=== PATIENT | male | born 1950 | race Caucasian/White ===

== ENCOUNTER 2018-12-14 11:46 | Inpatient (IN) | payer OTHER, BC ==
[~2018-12-14] VITALS: Ht 175.3 cm; Wt 125.9 kg
[2018-12-14 12:03] VITALS: Ht 175.3 cm; Wt 125.9 kg
[2018-12-14 12:22] LABS: BASOPHIL % 0.7 % (0-2); PLATELET COUNT 140 x10^3mcL (130-400)
[2018-12-14 12:40] LABS: CALCIUM 8.7 mg/dL (8.5-10.1); CREATININE SERUM 1.5 mg/dL (0.7-1.3); POTASSIUM SERUM 3.7 mmol/L (3.5-5.1)
[2018-12-14 12:44] LABS: TOTAL PROTEIN, SERUM 6.9 g/dL (6.4-8.2)
[2018-12-14 12:46] LABS: ALBUMIN 2.3 g/dL (3.4-5.0)
[2018-12-14 13:07] LABS: RED CELL DISTRIBUTION WIDTH 16.3 % (11.5-14.5)
[2018-12-14 15:29] LABS: APPEARANCE FLUID HAZY; COLOR FLUID YELLOW; LYMPHOCYTE FLUID 41 %; MONOCYTE FLUID 48 %; RBC FLUID 363 /cumm; SOURCE FLUID PARACENTESIS; WBC FLUID 67 /cumm
[2018-12-14] MEDS ORDERED: CLONAZEPAM0.5 MG PO (16:32)
[2018-12-14] MEDS ORDERED: GOOD SENSE ASPI81 M3 PO (16:32)
[2018-12-14 16:33] LABS: CHOLESTEROL/HDL RATIO 2.9; MAGNESIUM 1.7 mg/dL (1.8-2.4); PHOSPHOROUS 3.4 mg/dL (2.5-4.9)
[2018-12-14] MEDS ORDERED: XIFAXAN550 M1 PO (16:33)
[2018-12-14] MEDS ORDERED: LISINOPRIL2.5 MG PO (16:33)
[2018-12-14] MEDS ORDERED: LACTULOSE10 GM/152 (16:34)
[2018-12-14] MEDS ORDERED: CARVEDILOL3.125 M1 PO (16:34)
[2018-12-14] MEDS ORDERED: GLIMEPIRIDE4 M1 PO (16:34)
[2018-12-14] MEDS ORDERED: LASIX40 MG PO (16:34)
[2018-12-14] MEDS ORDERED: D3-50001 TAB PO (16:37)
[2018-12-14] MEDS ORDERED: B-1100 MG PO (16:37)
[2018-12-14 17:06] VITALS: BP 106/63
[2018-12-14 21:20] VITALS: BP 103/43
[2018-12-15 05:58] VITALS: BP 104/51
[2018-12-15 06:51] LABS: BASOPHIL % 0.8 % (0-2)
[2018-12-15 07:03] LABS: CALCIUM 8.5 mg/dL (8.5-10.1); CARBON DIOXIDE 21.9 mmol/L (21-32); CREATININE SERUM 1.5 mg/dL (0.7-1.3); POTASSIUM SERUM 3.8 mmol/L (3.5-5.1)
[2018-12-15 08:09] LABS: PLATELET COUNT 124 x10^3mcL (130-400); RED CELL DISTRIBUTION WIDTH 16.8 % (11.5-14.5)
[2018-12-15 09:40] VITALS: BP 118/72
[2018-12-15 17:25] LABS: UA SPECIFIC GRAVITY 1.025 (1.005-1.035); microscopic required? YES; urine erythrocyte NEGATIVE (NEGATIVE)
[2018-12-15 17:36] LABS: AMPHETAMINE QUAL UR NONE DETECTED (See below)
[2018-12-15 17:45] VITALS: BP 114/59
[2018-12-15 21:23] VITALS: BP 131/70
[2018-12-16 05:15] VITALS: BP 111/65
[2018-12-16 06:59] LABS: CALCIUM 8.7 mg/dL (8.5-10.1); CREATININE SERUM 1.5 mg/dL (0.7-1.3); POTASSIUM SERUM 4.2 mmol/L (3.5-5.1)
[2018-12-16 07:31] LABS: BASOPHIL % 0.5 % (0-2); PLATELET COUNT 130 x10^3mcL (130-400); RED CELL DISTRIBUTION WIDTH 16.7 % (11.5-14.5)
[2018-12-16 09:36] VITALS: BP 119/76
[2018-12-16 15:51] VITALS: BP 119/76
== END 2018-12-16 16:59 | DRG 432 ==
LOC: ED 11:46 → MU 16:14
PROVIDERS: Emergency Medicine; ADMIT Internal Medicine
PROC: 0W9G3ZZ Drainage of Peritoneal Cavity, Percutaneous Approach (ICD-10-PCS; principal; 2018-12-14)
DX: K70.31 Alcoholic cirrhosis of liver with ascites (principal); E43 Unspecified severe protein-calorie malnutrition; N17.0 Acute kidney failure with tubular necrosis; L03.311 Cellulitis of abdominal wall; Z68.41 Body mass index [BMI] 40.0-44.9, adult; E11.9 Type 2 diabetes mellitus without complications; E83.42 Hypomagnesemia; K42.9 Umbilical hernia without obstruction or gangrene; F10.10 Alcohol abuse, uncomplicated; Y90.0 Blood alcohol level of less than 20 mg/100 ml; E66.01 Morbid (severe) obesity due to excess calories; Z79.84 Long term (current) use of oral hypoglycemic drugs
CPT/HCPCS: 49083; 82962; 83880; 97116-GP; 97530-GP; C1729; G0378; J2001; J2405; J2543; J3010; J7030; J7040; Q0092

== ENCOUNTER → 2018-12-29 | Day surgery (SDC) | payer OTHER, BC ==
[~2018-12-29] VITALS: Ht 175.3 cm; Wt 133.8 kg
[~2018-12-29] MED LIST: B-1100 MG PO; CARVEDILOL3.125 M1 PO; CLONAZEPAM0.5 MG PO; D3-50001 TAB PO; GLIMEPIRIDE4 M1 PO; GOOD SENSE ASPI81 M3 PO; LACTULOSE10 GM/152; LASIX40 MG PO; LISINOPRIL2.5 MG PO; XIFAXAN550 M1 PO
--- NOTE | 2018-12-29 08:00 | NUR ---
RECEIVED PATIENT VIA W/C FROM ADM. FOR A PARACENTESIS. ALERT AND ORIENTED. RESP. REG. AND EVEN WITH OUT DISTRESS NOTED. NO SOB NOTED. ABD. DISTENDED AND TAUT. DR. Gabriel HUNTLEY IN TO SEE PATIENT. NEW ORDERES RECEIVED. NO C/O OR DSITRESS NOTED.
[2018-12-29 08:39] VITALS: BP 145/89
--- NOTE | 2018-12-29 10:40 | NUR ---
RADIOLOGIST AND RADIOLOGY NURSE AT THE BEDSIDE TO START THE PROCEDURE. DR. Gabriel HUNTLEY AT THE BEDSIDE. PATIENT IS ALERT AND ORIENTED. RESP. REG. AND EVEN WITH WITH OUT DISTRESS NOTED. NO SOB NOTED. PATIENT AMBULATED TO THE BATHROOM AT 1015 WITH STAND-BY ASSIT, NORMA. WELL. PATIENT STATED HE VOIDED WITH OUT C/O OF DYSPHAGIA NOTED. PROCEDURE STARTED AT THIS TIME. NO C/O OR DISTRESS NOTED.
--- NOTE | 2018-12-29 10:46 | NUR ---
SEE RADIOLOGY NURSING NOTES FOR INFORMATION REGARDING PARACENTESIS AT THE BEDSIDE. ULTASOUND TECHS AT THE BEDSIDE A/O FOR PARACENTESIS.
--- NOTE | 2018-12-29 11:22 | NUR ---
PARACENTSIS AT THE BEDSIDE IN PROGRESS. RADIOLOY RN AND RAD. TECHS AT THE BEDSIDE. PATIENT IS CONVERSING WITH THE NURSE AND THE TECHS. VERY PLEASANT. NO C/O OR DISTRESS NOTED. RESP. REG. AND EVEN WITH OUT DISTRESS NOTED. NO SOB NOTED.
[2018-12-29 11:40] VITALS: BP 113/64
--- NOTE | 2018-12-29 11:40 | NUR ---
PARACENTESIS COMPLETE AT THIS TIME. PATIENT TOLERATED PROCEDURE WELL. PATIENT STATES HE FEELS ALOT BETTER. RESP. REG. AND EVEN WITH OUT DISTRESS NOTED. NO SOB NOTED. DENIES CHEST PAIN AT THIS TIME. PARACENTSIS YEILDED 9 LITERS OF CLOUDY YELLOW. NO C/O OR DISTRESS NOTED.
[2018-12-29 12:00] VITALS: BP 116/64
--- NOTE | 2018-12-29 12:00 | NUR ---
AWAKE AND ALERT. PATIENT IS SITTING UP IN HIS GUERNY EATING LUNCH. RESP. REG. AND EVEN WITH OUT DISTRESS NOTED. NO SOB NOTED. DENIES CHEST PAIN AT THIS TIME. NO C/O OR DISTRESS NOTED.
[2018-12-29 12:25] VITALS: BP 110/68
--- NOTE | 2018-12-29 12:35 | NUR ---
PATIENT FINISHED HIS LUNCH, TOLERATED IT WELL. NO C/O DYSPHAGIA NOTED. RESP. REG. AND EVEN WIHT OUT DISTRESS NOTED. AMBULATED TO THE BATHROOOM WITH STAND-BY ASSSITNORMA. WELL. 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 PATIENT WAS ABLE TO DRESS HIMSELF WITH OUT C/O WITH SOME ASSIST NEEDED FOR HIS SHOES. DAUGHTER WAITING FOR PATIRystoN AND IS GOING TO GIVE HIM A RIDE TO [email or web address]. NO SOB NOTED. DENIES CHEST PAIN AT THIS TIME. NO C/O OR DISTRESS NOTED.
[2018-12-29 12:45] VITALS: BP 113/62
--- NOTE | 2018-12-29 12:45 | NUR ---
DISCHARGED A/O VIA W/C AFTER RECEIVING INSTRUCTIONS WITH VERBAL RESPONSE OF UNDERSTANDING. NO C/O OR DISTRESS NOTED.
== END | disposition home or self-care (01) ==
LOC: DS 07:57 → US 10:00 → DS 10:00
PROC: 0W9G3ZZ Drainage of Peritoneal Cavity, Percutaneous Approach (ICD-10-PCS; principal; 2018-12-29)
PROC: BW40ZZZ Ultrasonography of Abdomen (ICD-10-PCS; 2018-12-29)
DX: K70.31 Alcoholic cirrhosis of liver with ascites (principal); N17.9 Acute kidney failure, unspecified; I12.9 Hypertensive chronic kidney disease with stage 1 through stage 4 chronic kidney disease, or unspecified chronic kidney disease; E11.22 Type 2 diabetes mellitus with diabetic chronic kidney disease; N18.4 Chronic kidney disease, stage 4 (severe); K72.90 Hepatic failure, unspecified without coma; K42.9 Umbilical hernia without obstruction or gangrene; J44.9 Chronic obstructive pulmonary disease, unspecified; F10.21 Alcohol dependence, in remission; R26.2 Difficulty in walking, not elsewhere classified; Z79.84 Long term (current) use of oral hypoglycemic drugs; Z79.82 Long term (current) use of aspirin
CPT/HCPCS: 49083; C1729; Q0092

== ENCOUNTER 2019-01-13 09:32 | Emergency (ER) | payer OTHER, BC ==
[~2019-01-13] VITALS: Ht 175.3 cm; Wt 133.4 kg
[2019-01-13 09:38] VITALS: Ht 175.3 cm; Wt 133.4 kg
[2019-01-13 10:55] LABS: BASOPHIL % 0.2 % (0-2); PLATELET COUNT 150 x10^3mcL (130-400)
[2019-01-13 10:58] LABS: RED CELL DISTRIBUTION WIDTH 16.7 % (11.5-14.5)
[2019-01-13 11:44] LABS: CALCIUM 9.1 mg/dL (8.5-10.1); CARBON DIOXIDE 22.4 mmol/L (21-32); CREATININE SERUM 1.6 mg/dL (0.7-1.3); POTASSIUM SERUM 4.1 mmol/L (3.5-5.1)
[2019-01-13 11:49] LABS: BILIRUBIN TOTAL 1.72 mg/dL (0.20-1.00); TOTAL PROTEIN, SERUM 7.4 g/dL (6.4-8.2)
[2019-01-13 11:59] LABS: ALBUMIN 2.2 g/dL (3.4-5.0)
[2019-01-13 16:16] VITALS: BP 119/62
== END 2019-01-13 16:16 | disposition home or self-care (01) ==
LOC: ED 09:32
PROVIDERS: Emergency Medicine
DX: R18.8 Other ascites (principal); D64.9 Anemia, unspecified; E11.22 Type 2 diabetes mellitus with diabetic chronic kidney disease; N18.9 Chronic kidney disease, unspecified; Z88.8 Allergy status to other drugs, medicaments and biological substances; Z88.5 Allergy status to narcotic agent
CPT/HCPCS: 36415; 49083; J2001; Q0092